=== PATIENT | female | born 1975 | race Two or more races ===

== ENCOUNTER → 2018-02-09 | Outpatient (CLI) | payer MEDICARE, MEDICAID ==
[~2018-02-09] MED LIST: ALBU8.5H8 INH; ALPR0.25 PO; BACL20TA PO; BUDE10.2 INH; CARI350T PO; DOXE10CA PO; ESOM40CA PO; FENO145T32 PO; GABA600T2 PO; OXYC-307 PO; PREG100C PO; PREG75CA PO; SERT50TA PO; SOLI10TA2 PO; SUMA100T3 PO; ZOLP10TA PO
== END | disposition home or self-care (01) ==
LOC: CFH 07:10
PROVIDERS: ATTEND Family Medicine
DX: K21.9 Gastro-esophageal reflux disease without esophagitis (principal); R13.10 Dysphagia, unspecified
CPT/HCPCS: 74245

== ENCOUNTER → 2018-02-11 | Outpatient (CLI) | payer MEDICARE, MEDICAID | LOC: PETCFH 10:27 | PROVIDERS: ATTEND Family Medicine | DX: Z02.9 Encounter for administrative examinations, unspecified (principal) ==

== ENCOUNTER → 2018-02-24 | Outpatient (CLI) | payer MEDICARE, MEDICAID | END | disposition home or self-care (01) | LOC: PETCFH 10:42 | PROVIDERS: ATTEND Family Medicine | DX: R11.2 Nausea with vomiting, unspecified (principal) | CPT/HCPCS: 78264; A9541 ==

== ENCOUNTER 2019-02-10 09:58 | Outpatient (CLI) | payer MEDICARE, MEDICAID ==
[~2019-02-10 09:58] MED LIST changes: -GABA600T2 PO; +GABA600T7 PO
== END 2019-02-10 23:59 | disposition home or self-care (01) ==
LOC: CFH 09:58
PROVIDERS: ATTEND Physical Medicine & Rehabilitation
DX: M47.817 Spondylosis without myelopathy or radiculopathy, lumbosacral region (principal); M51.27 Other intervertebral disc displacement, lumbosacral region; M51.37 Other intervertebral disc degeneration, lumbosacral region; R60.0 Localized edema; G12.8 Other spinal muscular atrophies and related syndromes
CPT/HCPCS: 72120; 72148